=== PATIENT | female | born 1950 | race Caucasian/White ===

== ENCOUNTER 2017-02-09 23:58 | Emergency (ER) | payer OTHER ==
[~2017-02-09] VITALS: Ht 165.1 cm; Wt 100.2 kg
[~2017-02-09 23:58] MED LIST: BECL25SP NAS; CARI350T PO; CHOL5000 PO; CITA20TA5 PO; DIAZ10TA PO; DIPH12.521 PO; FAMO10TA77 PO; GABA300C10 PO; HYDR1TAB12 PO; LEVO50TA5 PO; LOSA50TA6 PO; MECL25TA4 PO; MORP15TA PO; POTA10TA17 PO; SIMV40TA3 PO; [UNRECOGNIZED DRUG - OTHER] PO
[2017-02-10 00:36] VITALS: BP 144/80
== END 2017-02-10 01:44 | disposition home or self-care (01) ==
LOC: ED 02-10 00:30
DX: S76.312A Strain of muscle, fascia and tendon of the posterior muscle group at thigh level, left thigh, initial encounter (principal); M79.652 Pain in left thigh; I10 Essential (primary) hypertension; X58.XXXA Exposure to other specified factors, initial encounter; Y93.89 Activity, other specified; Y92.89 Other specified places as the place of occurrence of the external cause; Y99.8 Other external cause status

== ENCOUNTER → 2017-04-21 | Outpatient (CLI) | payer OTHER | END | disposition home or self-care (01) | LOC: CARD 16:04 | PROVIDERS: ATTEND Internal Medicine Critical Care Medicine | DX: J45.991 Cough variant asthma (principal) | CPT/HCPCS: 94060; 94726; 94729 ==